=== PATIENT | male | born 1975 | race Caucasian/White ===

== ENCOUNTER 2020-01-02 14:50 | Emergency (ER) | payer BC, OTHER ==
[~2020-01-02] VITALS: Ht 175.3 cm; Wt 98.9 kg
[~2020-01-02 14:50] MED LIST: ESOM40CA39
[2020-01-02] MEDS ORDERED: ONDANSETRON HCL 4 MG/2 ML VIAL ONE (14:56)
[2020-01-02] MEDS ORDERED: MORPHINE SULFATE 4 MG/ML SYR/VIAL ONE (14:56)
[2020-01-02] MEDS ORDERED: HYDROmorphone HCL 2 MG/ML VL IV ONE ×6 (15:00→22:30)
[2020-01-02] MEDS ORDERED: ONDANSETRON HCL 4 MG/2 ML VIAL IV ONE ×3 (15:00→22:30)
[2020-01-02] MEDS ORDERED: MORPHINE SULFATE 4 MG/ML SYR/VIAL IV ONE (15:00)
[2020-01-02 15:28] LABS: Basophils # (auto) 0.1 uL; Eosinophils # (auto) 0.1 uL; Eosinophils % (auto) 0.5 % (0.0-7.0); Lymphocytes # (auto) 3.5 uL; Lymphocytes % (auto) 23.7 % (10.0-50.0); Neutrophils # (auto) 9.7 uL
[2020-01-02 15:29] LABS: Basophils % (auto) 0.6 % (0.0-2.0); Hematocrit 52.9 % (41.0-53.0); Hemoglobin 18.2 g/dL (13.5-17.5); Mean Corpuscular Hemoglobin 29.1 pg (28.0-32.0); Mean Corpuscular Hgb Conc. 34.3 g/dL (32.0-36.0); Mean Corpuscular Volume 84.6 fL (80.0-100.0); Monocytes # (auto) 1.2 uL; Monocytes % (auto) 8.5 % (0.0-12.0); Neutrophils % (auto) 66.7 % (37.0-80.0); Nucleated Red Blood Cells % 0.1 %; Platelet Count (auto) 249 10^3/uL (140-450); Red Blood Cells 6.25 10^6/uL (4.5-5.90); Red Cell Distribution Width 13.4 % (11.8-14.3); White Blood Cell 14.6 10^3/uL (4.4-10.8)
[2020-01-02 15:43] LABS: INR 0.97 (0.9-1.15); Partial Thromboplastin Time 22.5 sec (23.64-32.05)
[2020-01-02] MEDS ORDERED: PANTOPRAZOLE 40 MG/10 ML VIAL INJ IV ONE (15:45)
[2020-01-02 15:48] LABS: Albumin 4.1 g/dL (3.4-5.0); Anion Gap 10 (5-15); Blood Urea Nitrogen 14 mg/dL (7-18); Calcium 9.3 mg/dL (8.5-10.1); Carbon Dioxide 22 mmol/L (21-32); Chloride 107 mmol/L (98-107); Glucose 151 mg/dL (74-106); Potassium 3.2 mmol/L (3.5-5.1); Sodium 139 mmol/L (136-145)
[2020-01-02 15:54] LABS: Alanine Aminotransferase 177 U/L (16-61); Alkaline Phosphatase 111 U/L (45-117); Aspartate Aminotransferase 144 U/L (15-37); BUN/Creatinine Ratio 9.8; Bilirubin, Total 1.4 mg/dL (0.2-1.0); GFR African American 68 mL/min; GFR Non-African American 57 mL/min
[2020-01-02] MEDS ORDERED: HYDROmorphone HCL 2 MG/ML VL ONE (16:10)
[2020-01-02] MEDS ORDERED: SODIUM CHLORIDE 0.9% 1,000 ML IV ONE ×2 (16:15)
[2020-01-02 16:51] LABS: Amylase 3385 U/L (25-115); Lipase 59047 U/L (73-393)
[2020-01-02] MEDS ORDERED: PROMETHAZINE HCL 25 MG/ML 1ML IV ONE (17:15)
[2020-01-02 23:45] VITALS: BP 128/78
== END 2020-01-03 00:24 | disposition short-term general hospital (02) ==
LOC: EDBD 14:50 → EDUNIT# 14:50 → ER 14:53
DX: K85.90 Acute pancreatitis without necrosis or infection, unspecified (principal); R11.2 Nausea with vomiting, unspecified; I10 Essential (primary) hypertension; K21.9 Gastro-esophageal reflux disease without esophagitis; Z90.49 Acquired absence of other specified parts of digestive tract
CPT/HCPCS: 36415; 74176; 76705; 80053; 82150; 83690; 84484; 85025; 85610; 85730; 93005; 96361; 96374; 96375; 96376; 99285; C9113; J1170; J2270; J2405; J2550; J7030